=== PATIENT | female | born 1940 | race Hispanic/Latino ===

== ENCOUNTER 2024-04-16 06:16 | Day surgery (SDC) | payer OTHER, MEDICARE ==
[2024-04-16] VITALS (9 sets, daily range): BP systolic 114–155; BP diastolic 62–82; PULSE 69–87; RESP 15–18; TEMP 96.7–97.4
[~2024-04-16] VITALS: Ht 152.4 cm; Wt 66.7 kg
[~2024-04-16 06:16] MED LIST: APIX2.5T PO; FURO40TA5 PO; GLIP2.5T17 PO; METO-408 PO; MIRA50TA PO; ROSU10TA72 PO
[2024-04-16] MEDS: 0.9%NACL 1000ML 1,000 ML IV ONE (07:09)
[2024-04-16] MEDS ORDERED: proPOFol 10 MG/ML 20ML VIAL IV ONE (08:31)
== END 2024-04-16 09:49 | disposition home or self-care (01) ==
LOC: ENDO 06:16 → DAH 06:16 → ENDO 09:49
PROVIDERS: ATTEND Internal Medicine Gastroenterology
DX: D50.9 Iron deficiency anemia, unspecified (principal); K29.51 Unspecified chronic gastritis with bleeding; K31.89 Other diseases of stomach and duodenum; K92.1 Melena; I10 Essential (primary) hypertension; K59.00 Constipation, unspecified; K29.91 Gastroduodenitis, unspecified, with bleeding; J45.909 Unspecified asthma, uncomplicated; F41.9 Anxiety disorder, unspecified; F32.A Depression, unspecified; E11.9 Type 2 diabetes mellitus without complications; M19.90 Unspecified osteoarthritis, unspecified site; Z90.49 Acquired absence of other specified parts of digestive tract; Z95.810 Presence of automatic (implantable) cardiac defibrillator; E78.00 Pure hypercholesterolemia, unspecified; Z79.01 Long term (current) use of anticoagulants; Z79.899 Other long term (current) drug therapy
CPT/HCPCS: 44361; 82948 ×2; J7030 ×2; J2704; A4620; A7002; J3490